=== PATIENT | female | born 1945 | race Caucasian/White ===

== ENCOUNTER 2017-08-13 11:33 | Outpatient (CLI) | payer OTHER | END 2017-08-13 17:14 | disposition home or self-care (01) | LOC: SMA 11:33 | DX: Z12.31 Encounter for screening mammogram for malignant neoplasm of breast (principal) | CPT/HCPCS: 77067 ==

== ENCOUNTER 2019-08-24 12:09 | Outpatient (CLI) | payer OTHER | END 2019-08-24 19:56 | disposition home or self-care (01) | LOC: SMA 12:09 | PROVIDERS: ATTEND Family Medicine | DX: Z12.31 Encounter for screening mammogram for malignant neoplasm of breast (principal) | CPT/HCPCS: 77067 ==